=== PATIENT | male | born 1985 | race African-American/Black ===

== ENCOUNTER 2021-01-01 21:44 | Emergency (ER) | payer BC ==
[~2021-01-01] VITALS: Ht 170.2 cm; Wt 122.0 kg
--- NOTE | 2021-01-01 21:58 | PHYS DOC ---
Adult General HPI HPI Patient is a otherwise healthy 35-year-old male who presents with right knee pain. States he is got a charge,, tripped and fell on his right side, with his right knee hitting first. States that when he stood up he thinks his kneecap was dislocated and when he tried to straighten his leg says it went back in. States he has some pain in the area, 6 out of 10, dull and achy in nature. States he is able to walk but it causes him some discomfort. Denies any other injuries. Review of Systems Review of Systems Review of systems otherwise unremarkable except noted in HPI Physical Exam Physical Exam Constitutional: Well developed, well nourished, no acute distress, non-toxic appearance. [] HENT: Normocephalic, atraumatic, Cardiovascular:Heart rate regular rhythm, no murmur [] Lungs & Thorax: Bilateral breath sounds clear to auscultation [] Abdomen: Bowel sounds normal, soft, no tenderness, no masses, no pulsatile masses. [] Skin: Warm, dry, no erythema, no rash. [] Back: No tenderness, no CVA tenderness. [] Extremities: Right knee tenderness with no obvious bruising, swelling or deform ity Neurologic: Alert and oriented X 3, normal motor function, normal sensory function, able to sit, stand and walk without issue. No focal deficits noted. [] Psychologic: Affect normal, judgement normal, mood normal. [] EKG EKG [] Radiology/Procedures Radiology/Procedures [] Heart Score C/O Chest Pain: No Risk Factors: Risk Factors: DM, Current or recent (<one month) smoker, HTN, HLP, family history of CAD, obesity. Risk Scores: Risk Factors: DM, Current or recent (<one month) smoker, HTN, HLP, family history of CAD, obesity. Course & Med Decision Making Course & Med Decision Making Patient is a 35-year-old male presents with right knee pain after believing that his right patella dislocated and relocated Signs not concerning. Physical exam noted above. Given ice and pain medicine. Imaging with suprapatellar effusion with no osseous abnormalities. Given patient's history and clinical presentation most likely had a patellar dislocation relocation. Placed in knee immobilizer. Gave pain medication. Advised on symptom treatment at home. Advised to follow-up with primary care physician first thing Sunday to update on ED visit. Gave return precautions to the ED. Patient grateful, verbalized understanding and agreed with plan of discharge. [] Dragon Disclaimer Dragon Disclaimer This electronic medical record was generated, in whole or in part, using a voice recognition dictation system. Departure Departure: Impression: Primary Impression: Patellar dislocation Disposition: HOME / SELF CARE / HOMELESS Condition: GOOD Referrals: CHANDANA YAP MD Patient Instructions: Patellar Dislocation Additional Instructions: Thank you for coming into the emergency department today and allowing us to take care of you. Please read the attached information closely to go back over some of the things we discussed. Please begin a Tylenol, ibuprofen and ice regimen. Please take your pain medicine as needed for breakthrough. Please follow-up with your primary care physician on Sunday to update on your ED visit and set up a follow-up visit. Please come back to the emergency department with new or conc erning symptoms as we discussed. MERON FRANCE MD Jan 01, 2021 21:58
[2021-01-01 21:59] VITALS: BP 194/113
[2021-01-01] MEDS ORDERED: oxyCODONE/APAP 5/325 1 TAB TABLET PO ONE (22:00)
--- NOTE | 2021-01-01 22:20 | RAD ---
Exam: Right knee 4 views INDICATION: Fall TECHNIQUE: Frontal, lateral and oblique views of the right knee and sunrise views. Comparisons: None FINDINGS: Bone mineralization is normal. No acute or healed fractures. Moderate-sized suprapatellar effusion. J oint spaces are well-maintained. IMPRESSION: Moderate-sized suprapatellar fusion without underlying osseous abnormality identified. Electronically signed by: Alana Teixeira MD (01/01/2021 10:18 PM) SANDRA
[2021-01-01] MEDS ORDERED: ACETAMINOPHEN/CODEINE 300/30MG 4TABLET STARTPACK. PO ONE (22:30)
== END 2021-01-01 22:54 | disposition home or self-care (01) ==
LOC: ER 21:44
DX: S83.004A Unspecified dislocation of right patella, initial encounter (principal); W01.0XXA Fall on same level from slipping, tripping and stumbling without subsequent striking against object, initial encounter; Y93.89 Activity, other specified; Y92.89 Other specified places as the place of occurrence of the external cause; Y99.8 Other external cause status
CPT/HCPCS: 29505; 73564; 99283